=== PATIENT | male | born 1975 | race Caucasian/White ===

== ENCOUNTER 2022-02-13 19:49 | Emergency (ER) | payer OTHER, SELFPAY ==
--- NOTE | 2022-02-13 20:06 | ED.URI ---
HPI - URI/Sore Throat General Chief Complaint: Upper Respiratory Infection Stated Complaint: cough Time Seen by Provider: 02/13/22 20:06 Source: patient Mode of arrival: ambulatory Limitations: no limitations History of Present Illness HPI Narrative: 46-year-old male with no significant medical history presents with complaint of dry hacking cough for 3 weeks. States that he coughs when he is exerting himself laying flat in bed . No changes to cough today. States just not getting better . Denies shortness of breath. No fever or chills. No nasal congestion, postnasal drainage, runny nose, sinus pressure. No nausea vomiting diarrhea. Is taking an mnhl-zbh-fkronvx cough medication from [employer]. Does not know name of medication. States he gets this every year from allergies although he is not taking any daily allergy medication. Has been told that it is bronchitis and he gets an antibiotic for it. Patient is speaking in full sentences. No respiratory distress. He is well-appearing. All systems reviewed and negative except as noted above. Related Data Allergies Allergy/AdvReac Type Severity Reaction Status Date / Time milk Allergy Unknown Verified 03/27/17 10:17 ENVIRONMENTAL ALLERGENS AdvReac Unknown Uncoded 03/27/17 10:17 Review of Systems Review of Systems: CONSTITUTIONAL: Denies fever, chills, or sweats. EYES: Denies visual changes, redness, or discharge. ENT: Denies rhinorrhea, congestion, sore throat, or otalgia. CARDIOVASCULAR: Denies chest pain, palpitations, or edema. RESPIRATORY: Reports cough. Denies dyspnea. GASTROINTESTINAL: Denies abdominal pain, nausea, vomiting, or diarrhea. GENITOURINARY: Denies dysuria or hematuria. SKIN: Denies rash or itching. MUSCULOSKELETAL: Denies back pain, joint pain, or myalgia. NEUROLOGIC: Denies headache, numbness, or weakness. PSYCHIATRIC: Denies anxiety or depression. All other systems reviewed are negative, except as documented in HPI. PMFSH Comments At time of signature, agree with nursing past medical, surgical, social and family history. There is no relevant family history pertinent to the presenting complaint. Exam Narrative: GENERAL: This is a well-nourished, well-developed patient, in no apparent distress. HEAD: normocephalic, atraumatic. EYES: PERRL. Sclera clear/white. Vision is grossly intact. EARS: External ears normal, auditory canals clear and without drainage, TMs normal without perforation. Hearing grossly intact. NOSE: External nose normal with no obvious nasal discharge, nares without redness, no rhinorrhea. THROAT: Mucous membranes moist, posterior pharynx clear. NECK: Neck supple, non-tender without lymphadenopathy, masses or thyromegaly. CARDIOVASCULAR: Regular rate and rhythm without murmurs, gallops, or rubs. RESPIRATORY: Clear to auscultation. Breath sounds equal bilaterally. No wheezes, rales, or rhonchi. SKIN: warm, Dry, intact with no suspicious lesions or rash, good texture and turgor. NEURO: awake, alert, and oriented to person, place and time. There were no obvious focal neurologic abnormalities. EXTREMITIES: Normal range of motion to all extremities. Course Course Level of Care: Express Care Visit Vital Signs Vital signs: Reviewed MDM - URI/Sore Throat MDM Narrative Medical decision making narrative: Patient is well-appearing. Exam normal. Lung sounds clear to auscultation throughout all lung triplett. No cough was noted during exam. Patient is aware of diagnosis, understands and agrees to treatment plan. Anticipatory guidance given. Patient agrees to follow-up as directed and is aware of reasons to seek care at the emergency department. Portions of this record may have been created with voice recognition software Differential Diagnosis Differential diagnosis: Likely upper respiratory infection, viral infection and bronchitis Discharge Plan Discharge Clinical Impression: Cough Patient Disposition: Home, Self-
== END 2022-02-13 20:15 | disposition home or self-care (01) ==
PROVIDERS: Emergency Provider Nurse Practitioner Family
DX: R05.9 Cough, unspecified (principal)
CPT/HCPCS: 99213; G0463

== ENCOUNTER 2022-10-26 14:37 | Emergency (ER) | payer OTHER, SELFPAY ==
--- NOTE | ~2022-10-26 | XR_ITS ---
EXAMINATION: XR knee LT min 4V DATE: 10/26/2022 15:11 INDICATION: Left knee pain TECHNIQUE: Four views of the left knee were obtained. COMPARISON: None. FINDINGS: Alignment is normal. No fracture or osteochondral lesion. There is mild tricompartmental os teoarthritis characterized by tiny marginal osteophytes. No joint effusion/synovitis. Calcified athe rosclerosis is noted. IMPRESSION: 1. No acute osseous abnormality. Reviewed, dictated and finalized at location B. OR QUALITY CONTROL INSPECTOR
[2022-10-26 14:43] VITALS: BP 106/81; PULSE 68; RESP 16; TEMP 36.6; O2SAT 99
--- NOTE | 2022-10-26 14:43 | ED.GENADULT ---
HPI - General Adult General Chief complaint: Extremity Problem,Nontraumatic Stated complaint: Left Knee Pain Time Seen by Provider: 10/26/22 14:47 Source: patient, RN notes reviewed and old records reviewed Mode of arrival: ambulatory Limitations: no limitations History of Present Illness HPI narrative: 47-year-old male presents to the [facility] with complaints of left knee pain. Patient states that the pain started when he woke up yesterday. Denies any injury. no bruising or swelling noted. Patient is also concerned because his allergies are acting Up. States that all the jynv-[id number] medications make him drowsy. Wants know if there is any that he can take that will not make him drowsy. Denies any fevers, chest pain, shortness of breath. Reports that his sinuses are sometimes stuffy and sometimes has a runny nose but no other symptoms Onset (ago): day(s) (1) Related Data Allergies Allergy/AdvReac Type Severity Reaction Status Date / Time milk Allergy Unknown Unknown Verified 10/26/22 14:52 ENVIRONMENTAL ALLERGENS AdvReac Unknown Unknown Uncoded 10/26/22 14:52 Review of Systems Review of Systems: All systems reviewed & are unremarkable except as noted in HPI and below Constitutional: Constitutional: Reports no additional constitutional complaints Eyes: Eyes: Reports no additional eye complaints ENT: Reports as per HPI and Reports nasal congestion Cardiovascular: Cardiovascular: Reports no additional cardiovascular complaints, Denies chest pain and Denies dyspnea Respiratory: Respiratory: Reports no additional respiratory complaints, Denies chest congestion, Denies cough and Denies dyspnea Gastrointestinal: Gastrointestinal: Reports no additional gastrointestinal complaints, Denies abdominal pain, Denies nausea and Denies vomiting Musculoskeletal: Musculoskeletal: Reports as per HPI and Reports arthralgias ( left knee) Integumentary/Breasts: Skin/Breast: Reports system reviewed and no additional complaints, except as docu Neurologic: Reports system reviewed and no additional complaints, except as documented Psychiatric: Psychiatric: Reports no additional psychiatric complaints Allergic/Immunologic: Allergic/Immunologic: Reports no additional allergic/immunologic complaints PMFSH Comments At the time of my signature, I reviewed and agree with the nursing past medical, surgical, social, and family history. There is no relevant family history pertinent to the patient complaint. Exam Const: General: cooperative, healthy appearing, comfortable, no acute distress, well developed, alert and well nourished Nutritional Appearance: well nourished Orientation/consciousness: patient oriented x3 Limitations: no limitations HENMT: Head: normal to inspection Ears: hearing grossly normal bilaterally and external ears normal Face/Nose/Sinus: Normal external nose present, Normal nares present, Normal nasal mucous membranes and turbinates present and normal facial exam Face and sinus: normal facial exam Mouth: Yes Normal oral and palatal mucosa present, Yes lip normal and Yes moist mucous membranes Throat: posterior oropharynx normal and uvula midline Eyes: General: appearance normal, both eyes and all related structures Alignment and Position: alignment normal Periorbital: periorbital findings normal Conjunctivae: conjunctivae normal Pupils: Equal, round and reactive pupils present EOM: EOMs intact bilaterally Neck: Neck: normal visual inspection, full ROM, no lymphadenopathy and no meningeal signs Chest: Chest palpation & inspection: normal inspection of the chest Resp: Effort & Inspection: normal respiratory effort and able to speak in complete sentences Auscultation: clear to auscultation bilaterally, no crackles, no rales, no rhonchi and no wheezes Cardio: Rate: regular rate Rhythm: regular rhythm Back/Spine/Pelvis: Cervical Spine: cervical ROM normal Thoracic/Lumbar Spine: No thoracic spinal tenderness S
== END 2022-10-26 15:46 | disposition home or self-care (01) ==
PROVIDERS: Emergency Provider Nurse Practitioner
DX: M17.12 Unilateral primary osteoarthritis, left knee (principal)
CPT/HCPCS: 73564; 99213; G0463

== ENCOUNTER 2023-06-05 14:22 | Emergency (ER) | payer OTHER, SELFPAY ==
[2023-06-05 14:47] VITALS: BP 149/80; PULSE 104; RESP 20; TEMP 37.1; O2SAT 100
--- NOTE | 2023-06-05 14:58 | ED.URI ---
HPI - URI/Sore Throat General Chief Complaint: Upper Respiratory Infection Stated Complaint: Sinus Source: patient and RN notes reviewed History of Present Illness HPI Narrative: 47-year-old male presents to urgent care with complaints of congestion, and cough for the last 8 days. 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 Patient states he immediately began to have a runny nose and sneezing after the delivery so he attempted taking allergy medicine without relief. Patient states my congestion got down into his chest it was causing her to cough a lot so he began taking an OTC congestion/cough pill with moderate relief. Pt states his congestion in his face continues though. reports some shortness of breath with exertion. Reports some chest pain when he coughs. Denies any fevers, chills, chest pain, vomiting, diarrhea. Related Data Allergies Allergy/AdvReac Type Severity Reaction Status Date / Time milk Allergy Unknown Unknown Verified 06/05/23 14:40 ENVIRONMENTAL ALLERGENS AdvReac Unknown Unknown Uncoded 06/05/23 14:40 Review of Systems Review of Systems: Pertinent positives and pertinent negatives per HPI. PMFSH Past Medical History Medical History No significant past medical history Surgical History Surgical History (Updated 02/23/23 @ 04:42 by Anton Romo MD) No significant past surgical history Social History Social History (Updated 02/23/23 @ 04:42 by Anton Romo MD) Smoking status: Never smoker Alcohol intake: never Substance use: never Comments At the time of my signature, I reviewed and agree with the nursing past medical, surgical, social, and family history. There is no relevant family history pertinent to the patient complaint. Exam Narrative: GENERAL: This is a well-nourished, well-developed patient, in no apparent distress. HEAD: normocephalic, atraumatic. EYES: Sclera clear/white. Vision is grossly intact. EARS: External ears normal, auditory canals clear and without drainage, TMs normal without perforation. Hearing grossly intact. NOSE: congested THROAT: Mucous membranes moist, posterior pharynx clear. NECK: Neck supple, non-tender without lymphadenopathy, masses or thyromegaly. CARDIOVASCULAR: Regular rate and rhythm without murmurs, gallops, or rubs. RESPIRATORY: Clear to auscultation. Breath sounds equal bilaterally. No wheezes, rales, or rhonchi. GASTROINTESTINAL: Abdomen soft, non-tender, nondistended. Bowel sounds are active. No hepato-splenomegaly, or palpable masses. No guarding. SKIN: warm, intact with no suspicious lesions or rash, good texture and turgor. NEURO: awake, alert, and oriented to person, place and time. There were no obvious focal neurologic abnormalities. Course Course Level of Care: Express Care Visit Vital Signs Vital signs: Vital Signs Temperature 98.8 F 06/05/23 14:47 Pulse Rate 104 H 06/05/23 14:47 Respiratory Rate 20 06/05/23 14:47 Blood Pressure 149/80 H 06/05/23 14:47 Pulse Oximetry 100 06/05/23 14:47 Oxygen Delivery Room Air 06/05/23 14:47 Temperature 98.8 F 06/05/23 14:47 Pulse Rate 104 H 06/05/23 14:47 Respiratory Rate 20 06/05/23 14:47 Blood Pressure 149/80 H 06/05/23 14:47 Pulse Oximetry 100 06/05/23 14:47 Oxygen Delivery Room Air 06/05/23 14:47 reviewed MDM - URI/Sore Throat MDM Narrative Medical decision making narrative: Go to the ER for any new or worsening symptoms. Avoid smoking/second-hand smoke. Continue to take Tylenol or Motrin for pain. Increase your Vitamin C intake. Use a humidifier or vaporizer at night. Take Medications as prescribed. Drink plenty of water. 8-10 glasses per day. Use flonase 2 times per day for 5 days then as needed Take mucinex 2 times per day and be sure to take with 8oz of water. Follow up with Primary provider
== END 2023-06-05 15:05 | disposition home or self-care (01) ==
PROVIDERS: Emergency Provider Nurse Practitioner Family
DX: J01.90 Acute sinusitis, unspecified (principal)
CPT/HCPCS: 99213; G0463

== ENCOUNTER 2023-06-14 15:27 | Emergency (ER) | payer OTHER, SELFPAY ==
[2023-06-14 15:41] VITALS: BP 133/71; PULSE 66; RESP 16; TEMP 36.8; O2SAT 98
--- NOTE | 2023-06-14 15:59 | ED.URI ---
HPI - URI/Sore Throat General Chief Complaint: Upper Respiratory Infection Stated Complaint: sinus drainage Time Seen by Provider: 06/14/23 15:59 Source: patient Mode of arrival: ambulatory Limitations: no limitations History of Present Illness HPI Narrative: 47 yo M presents requesting antibiotic refill. Will take last dose of augmentin tonight and still has PND. States i am 90 percent better . Using flonase but no daily claritin or zyrtec. Afebrile. Pt well appearing and talkative. All systems reviewed and negative except as noted above. Related Data Home Medications Medication Instructions Recorded Confirmed No Home Medications 06/14/23 06/14/23 Allergies Allergy/AdvReac Type Severity Reaction Status Date / Time milk Allergy Unknown Unknown Verified 06/14/23 15:45 ENVIRONMENTAL ALLERGENS AdvReac Unknown Unknown Uncoded 06/14/23 15:45 Review of Systems Review of Systems: CONSTITUTIONAL: Denies fever, chills, or sweats. EYES: Denies visual changes, redness, or discharge. ENT: Denies rhinorrhea, congestion, sore throat, or otalgia. Reports postnasal drainage. CARDIOVASCULAR: Denies chest pain, palpitations, or edema. RESPIRATORY: Denies cough or dyspnea. GASTROINTESTINAL: Denies abdominal pain, nausea, vomiting, or diarrhea. GENITOURINARY: Denies dysuria or hematuria. SKIN: Denies rash or itching. MUSCULOSKELETAL: Denies back pain, joint pain, or myalgia. NEUROLOGIC: Denies headache, numbness, or weakness. PSYCHIATRIC: Denies anxiety or depression. All other systems reviewed are negative, except as documented in HPI. PMFSH Past Medical History Medical History No significant past medical history Surgical History Surgical History (Updated 02/23/23 @ 04:42 by Anton Romo MD) No significant past surgical history Social History Social History (Updated 02/23/23 @ 04:42 by Anton Romo MD) Smoking status: Never smoker Alcohol intake: never Substance use: never Comments At time of signature, agree with nursing past medical, surgical, social and family history. There is no relevant family history pertinent to the presenting complaint. Exam Narrative: GENERAL: This is a well-nourished, well-developed patient, in no apparent distress. HEAD: normocephalic, atraumatic. EYES: PERRL. Sclera clear/white. Vision is grossly intact. EARS: External ears normal, auditory canals clear and without drainage, TMs normal without perforation. Hearing grossly intact. NOSE: External nose normal with no obvious nasal discharge, nares without redness, no rhinorrhea. THROAT: Mucous membranes moist, Unable to evaluate pharynx due to large tongue. Patient gagging with tug weight. Clearing throat of drainage. NECK: Neck supple, non-tender without lymphadenopathy, masses or thyromegaly. CARDIOVASCULAR: Regular rate and rhythm without murmurs, gallops, or rubs. RESPIRATORY: Clear to auscultation. Breath sounds equal bilaterally. No wheezes, rales, or rhonchi. SKIN: warm, Dry, intact with no suspicious lesions or rash, good texture and turgor. NEURO: awake, alert, and oriented to person, place and time. There were no obvious focal neurologic abnormalities. EXTREMITIES: No joint tenderness, effusion, or edema noted. Course Course Level of Care: Express Care Visit Vital Signs Vital signs: Vital Signs Temperature 36.8 C 06/14/23 15:41 Pulse Rate 66 06/14/23 15:41 Respiratory Rate 16 06/14/23 15:41 Blood Pressure 133/71 06/14/23 15:41 Pulse Oximetry 98 06/14/23 15:41 Oxygen Delivery Room Air 06/14/23 15:41 Temperature 36.8 C 06/14/23 15:41 Pulse Rate 66 06/14/23 15:41 Respiratory Rate 16 06/14/23 15:41 Blood Pressure 133/71 06/14/23 15:41 Pulse Oximetry 98 06/14/23 15:41 Oxygen Delivery Room Air 06/14/23 15:41 Reviewed MDM - URI/Sore Throat MDM Narrative Medical decision making na
== END 2023-06-14 16:06 | disposition home or self-care (01) ==
PROVIDERS: Emergency Provider Nurse Practitioner Family
DX: R09.82 Postnasal drip (principal)
CPT/HCPCS: 99213; G0463

== ENCOUNTER 2023-08-24 14:35 | Emergency (ER) | payer OTHER, SELFPAY ==
[2023-08-24 14:41] VITALS: BP 123/76; PULSE 66; RESP 16; TEMP 36.3; O2SAT 99
--- NOTE | 2023-08-24 14:43 | ED.URI ---
HPI - URI/Sore Throat General Chief Complaint: Upper Respiratory Infection Stated Complaint: Sore Throat/Back Pain Time Seen by Provider: 08/24/23 15:00 Source: patient and RN notes reviewed Mode of arrival: ambulatory Limitations: no limitations History of Present Illness HPI Narrative: 47-year-old male presents with concern for for complaints. He reports he has had low back ache for 1 week. Reports history of pulling muscle in his back. He denies any new injury, trauma. Reports he has been playing a lot with his grand children. Reports he can find positions of comfort, it is uncomfortable to stand up from sitting mainly. Reports sitting for long periods of time is also uncomfortable. He denies weakness in extremity, loss of bowel or bladder function, perianal anesthesia, abdominal pain. In the 2nd complaint he reports sore throat that started on Wednesday. Reports a tickle and cough. He denies fever, aches chills, sweats. Reports some nasal congestion MD elicited complaint: sore throat and other (Back pain) Related Data Allergies Allergy/AdvReac Type Severity Reaction Status Date / Time milk Allergy Unknown Gastrointestinal Verified 08/24/23 15:14 Upset ENVIRONMENTAL ALLERGENS AdvReac Unknown Unknown Uncoded 06/14/23 15:45 Review of Systems Review of Systems: CONSTITUTIONAL: Denies malaise, chills, sweats, or fever. EYES: Denies visual changes, redness, or discharge. ENT: Reports rhinorrhea, congestion, sore throat. Denies sinus pain, otalgia CARDIOVASCULAR: Denies chest pain, palpitations, or edema. RESPIRATORY: Denies cough or dyspnea. GASTROINTESTINAL: Denies abdominal pain, nausea, vomiting, diarrhea, bloody, or mucous stools. Denies loss of bowel function GENITOURINARY: Denies dysuria or hematuria. Denies loss of bladder function, perianal anesthesia SKIN: Denies rash or itching. MUSCULOSKELETAL: Reports left low back pain. Denies myalgia. NEUROLOGIC: Denies numbness, weakness, or headache. All systems reviewed & are unremarkable except as noted in HPI and below PMFSH Past Medical History Medical History No significant past medical history Surgical History Surgical History (Updated 02/23/23 @ 04:42 by Anton Romo MD) No significant past surgical history Social History Social History (Updated 02/23/23 @ 04:42 by Anton Romo MD) Smoking status: Never smoker Alcohol intake: never Substance use: never Comments At time of signature, agree with nursing past medical, surgical, social and family history. There is no relevant family history pertinent to the presenting complaint Exam Narrative: GENERAL: Well-appearing, well-nourished, and in no acute distress. HEAD: Normocephalic, atraumatic. EYES: PERRLA and EOMI. HEENT: Clear discharge, TM pearly cook with sharp light reflex bilaterally, mild oropharynx erythema without enlarged tonsils. NECK: Supple. No lymphadenopathy. CHEST: Clear to auscultation. No respiratory distress. HEART: Regular rate and rhythm. Distal pulses palpable and equal, cap refill <3 seconds ABDOMEN: Soft, nontender, nondistended, normal active bowel sounds, no palpable or pulsatile masses. MUSCULOSKELETAL: Normal range of motion and strength in all extremities. Normal sensation in dermatomal distributions with sensitivity to light touch and pain. No midline back tenderness to palpation. No paraspinal tenderness. Transfers from lying to sitting to standing. SKIN: Warm, dry, no rash. No ecchymosis, erythema, open wounds to back. NEURO: No focal deficits. Alert and oriented x3. Reflexes intact. Normal gait. PSYCH: Normal mood and affect Course Course Emergency Course: Patient is aware of diagnosis, understands and agrees to treatment plan. Anticipatory guidance given. Patient agrees to follow-up as directed and is aware of reasons to seek care at the emergency department. Portions of this
== END 2023-08-24 15:21 | disposition home or self-care (01) ==
PROVIDERS: Emergency Provider Nurse Practitioner
DX: J06.9 Acute upper respiratory infection, unspecified (principal); M54.50 Low back pain, unspecified
CPT/HCPCS: 87081; 87880; 99213; G0463

== ENCOUNTER 2023-11-01 16:28 | Emergency (ER) | payer OTHER, SELFPAY ==
--- NOTE | ~2023-11-01 | XR_ITS ---
EXAMINATION: XR chest 2V DATE: 11/01/2023 17:22 INDICATION: Cough. TECHNIQUE: Frontal and lateral views of the chest were obtained. COMPARISON: Thoracic spine CT 02/23/23 FINDINGS: There is no pneumonia, pleural effusion, or pneumothorax. The heart size is normal. IMPRESSION: 1. No acute cardiopulmonary disease. Reviewed, dictated and finalized at location A. ENERGY CONSULTANT SUPERVISOR
[2023-11-01 16:44] VITALS: BP 135/74; PULSE 94; RESP 16; TEMP 37.2; O2SAT 100
--- NOTE | 2023-11-01 17:24 | ED.URI ---
HPI - URI/Sore Throat General Chief Complaint: Upper Respiratory Infection Stated Complaint: Cough Time Seen by Provider: 11/01/23 17:46 Source: patient and RN notes reviewed Mode of arrival: ambulatory Limitations: no limitations History of Present Illness HPI Narrative: 48-year-old male presents with concern for 2 week history of sinus congestion and drainage, cough, chest congestion. Reports [id number] medications are not helping. Reports shortness of breath with coughing fits. He reports general malaise denies fever MD elicited complaint: cough and nasal congestion Related Data Allergies Allergy/AdvReac Type Severity Reaction Status Date / Time milk Allergy Unknown Gastrointestinal Verified 11/01/23 16:54 Upset ENVIRONMENTAL ALLERGENS AdvReac Unknown Unknown Uncoded 06/14/23 15:45 Review of Systems Review of Systems: CONSTITUTIONAL: Reports malaise EYES: Denies visual changes, redness, or discharge. ENT: Reports rhinorrhea, congestion, sinus pain CARDIOVASCULAR: Denies chest pain, palpitations, or edema. RESPIRATORY: Reports cough, situational dyspnea. GASTROINTESTINAL: Denies abdominal pain, nausea, vomiting, diarrhea SKIN: Denies rash or itching. MUSCULOSKELETAL: Denies myalgia. NEUROLOGIC: Denies headache. All systems reviewed & are unremarkable except as noted in HPI and below PMFSH Past Medical History Medical History No significant past medical history Surgical History Surgical History (Updated 02/23/23 @ 04:42 by Anton Romo MD) No significant past surgical history Social History Social History (Updated 02/23/23 @ 04:42 by Anton Romo MD) Smoking status: Never smoker Alcohol intake: never Substance use: never Comments At time of signature, agree with nursing past medical, surgical, social and family history. There is no relevant family history pertinent to the presenting complaint Exam Narrative: GENERAL: Nontoxic-appearing, well-nourished, and in no acute distress. HEAD: Normocephalic EYES: PERRLA, conjunctivae clear ENT: Nares clear, turbinates edematous and erythematous. Mucous membranes moist. TM pearly cook with dull light reflex bilaterally; no tragal tenderness. Oropharynx not erythematous without lesions. Tonsils not enlarged and without exudate, no drooling, no hoarseness, no trismus, uvula midline. NECK: Supple. No lymphadenopathy CHEST: Clear to auscultation, breath sounds equal. No wheezing, rhonchi, rales, or stridor. No respiratory distress, speaks in full sentences. Cough noted HEART: Regular rate and rhythm. No murmur heard. SKIN: Warm, dry, no rash. NEURO: Alert and oriented x3. PSYCH: Normal mood and affect Course Course Emergency Course: Patient is aware of diagnosis, understands and agrees to treatment plan. Anticipatory guidance given. Patient agrees to follow-up as directed and is aware of reasons to seek care at the emergency department. Portions of this record may have been created with voice recognition software Level of Care: Express Care Visit Vital Signs Vital signs: Vital Signs Temperature 98.9 F 11/01/23 16:44 Pulse Rate 94 11/01/23 16:44 Respiratory Rate 16 11/01/23 16:44 Blood Pressure 135/74 11/01/23 16:44 Pulse Oximetry 100 11/01/23 16:44 Oxygen Delivery Room Air 11/01/23 16:44 Temperature 98.9 F 11/01/23 16:44 Pulse Rate 94 11/01/23 16:44 Respiratory Rate 16 11/01/23 16:44 Blood Pressure 135/74 11/01/23 16:44 Pulse Oximetry 100 11/01/23 16:44 Oxygen Delivery Room Air 11/01/23 16:44 Reviewed. MDM - URI/Sore Throat MDM Narrative Medical decision making narrative: Differential diagnosis considered: Benz virus, strep pharyngitis, allergic rhinitis, upper respiratory tract infection, sinusitis, rhinosinusitis, nasopharyngitis. viral pharyngitis, otitis media, otitis externa, pneumonia, bronchitis, viral
== END 2023-11-01 17:55 | disposition home or self-care (01) ==
PROVIDERS: Emergency Provider Nurse Practitioner
DX: J40 Bronchitis, not specified as acute or chronic (principal)
CPT/HCPCS: 71046; 99213; G0463

== ENCOUNTER 2024-05-30 19:15 | Emergency (ER) | payer OTHER, SELFPAY ==
--- NOTE | 2024-05-30 19:16 | ED.NAVMDI ---
HPI - Nausea/Vomiting/Diarrhea General Chief complaint: Nausea/Vomiting/Diarrhea Stated complaint: Food Poisoning Time Seen by Provider: 05/30/24 19:16 Source: patient Mode of arrival: ambulatory Limitations: no limitations History of Present Illness HPI Narrative: Patient is a 48 y/o Male that presents with nausea and diarrhea since Wednesday after eating at a restaurant with . Patient was having diarrhea every 15-30 minutes until last night when it stopped. Reports one episode today. Denies any nausea or vomiting. Still has some abdominal cramping. Did eat today. Reports fatigue and continued decreased appetite. Denies any fever or chills. Denies any blood in stool. Related Data Allergies Allergy/AdvReac Type Severity Reaction Status Date / Time milk Allergy Unknown Gastrointestinal Verified 05/30/24 19:16 Upset ENVIRONMENTAL ALLERGENS AdvReac Unknown Unknown Uncoded 05/30/24 19:16 Review of Systems Review of Systems: All systems reviewed & are unremarkable except as noted in HPI and below Constitutional: Constitutional: Denies body ache(s), Denies chills, Denies fatigue, Denies fever(s), Denies headache(s), Denies malaise and Denies weakness Eyes: Eyes: Denies blurry vision, Denies irritation and Denies loss of vision ENT: Denies otalgia, Denies headache(s), Denies nasal discharge, Denies sinus pain and Denies sore throat Cardiovascular: Cardiovascular: Denies chest pain, Denies irregular heart rhythm and Denies dyspnea Respiratory: Respiratory: Denies dyspnea Gastrointestinal: Gastrointestinal: Denies abdominal pain, Denies melena, Denies hematochezia, Reports GI cramping, Reports diarrhea, Reports nausea and Denies vomiting Musculoskeletal: Musculoskeletal: Denies back pain, Denies myalgias and Denies arthralgias Integumentary/Breasts: Skin/Breast: Denies pruritus and Denies rash Neurologic: Denies headache(s), Denies loss of vision and Denies weakness Psychiatric: Psychiatric: Reports no additional psychiatric complaints Endocrine: Endocrine: Denies fatigue PMFSH Past Medical History Medical History No significant past medical history Surgical History Surgical History No significant past surgical history Social History Social History Smoking status: Never smoker Alcohol intake: never Substance use: never Comments At time of signature, agree with nursing past medical, surgical, social and family history. There is no relevant family history pertinent to the presenting complaint. Exam Const: General: cooperative, healthy appearing, comfortable, no acute distress and well nourished Nutritional Appearance: well nourished Orientation/consciousness: patient oriented x3 Limitations: no limitations HENMT: Head: normal to inspection, normocephalic and atraumatic Ears: hearing grossly normal bilaterally and external ears normal Face/Nose/Sinus: Normal external nose present, normal facial exam and face symmetric Face and sinus: normal facial exam and face symmetric Mouth: Yes lip normal Eyes: General: appearance normal, both eyes and all related structures Alignment and Position: alignment normal and position normal Periorbital: periorbital findings normal Eyelids: eyelids normal Pupils: Equal, round and reactive pupils present EOM: EOMs intact bilaterally Neck: Neck: normal visual inspection, full ROM and supple Chest: Chest palpation & inspection: normal inspection of the chest Resp: Effort & Inspection: normal respiratory effort and able to speak in complete sentences Auscultation: clear to auscultation bilaterally Cardio: Rate: regular rate Rhythm: regular rhythm Heart sounds: S1 normal heart sound present and S2 normal heart sound present GI: Inspection: normal to inspection GI Palp: No abdominal tenderness, Yes Soft
[2024-05-30 19:23] VITALS: BP 113/79; PULSE 81; RESP 16; TEMP 37; O2SAT 100
== END 2024-05-30 19:58 | disposition home or self-care (01) ==
PROVIDERS: Emergency Provider Nurse Practitioner Family
DX: K52.9 Noninfective gastroenteritis and colitis, unspecified (principal)
CPT/HCPCS: 99213; G0463

== ENCOUNTER 2025-05-10 19:30 | Emergency (ER) | payer OTHER, SELFPAY ==
--- NOTE | ~2025-05-10 | XR_ITS ---
XR foot RT min 3V 05/10/2025 19:49 Indication: Right lateral foot pain Procedure: 4 views right foot Comparison: No prior studies for comparison. Findings: Lisfranc joint intact. There is an accessory ossicle proximal to the fifth metatarsal. No acute fracture or traumatic malalignment. No foreign bodies. Mild diffuse soft tissue swelling/edema. Impression: 1: No acute bone or joint abnormality. Reviewed, dictated and finalized at location O. Impression: 1: No acute bone or joint abnormality.
[2025-05-10 19:39] VITALS: BP 138/81; PULSE 76; RESP 18; TEMP 36.8; O2SAT 98
--- NOTE | 2025-05-10 19:48 | ED.LOWEXIN ---
HPI - Extremity Injury (Lower) General Chief Complaint: Extremity Injury, Lower Stated Complaint: Right Foot Pain Time Seen by Provider: 05/10/25 19:40 Source: patient and RN notes reviewed Mode of arrival: ambulatory Limitations: no limitations History of Present Illness HPI Narrative: 49-year-old male Presents [facility] complaining of injury to right foot. 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 Since then the patient is having hard time bearing weight on his right foot. Patient denies dropping anything or falling on his foot. Patient to the injury occurred approximately 1 hour ago. Patient says the pain is primarily on the lateral midfoot and feels pain the plantar surface of his distal foot. Patient denies any numbness, tingling or any other injuries. Patient denies any significant past medical history. Related Data Home Medications ?Medication ?Instructions ?Recorded ?Confirmed ?Last Taken ?Type No Home Medications 05/10/25 05/10/25 Unknown History Allergies Allergy/AdvReac Type Severity Reaction Status Date / Time milk Allergy Unknown Gastrointestinal Verified 05/10/25 19:31 Upset ENVIRONMENTAL ALLERGENS AdvReac Unknown Unknown Uncoded 05/10/25 19:31 Review of Systems Review of Systems: CONSTITUTIONAL: Denies fever, chills, or sweats. EYES: Denies visual changes, redness, or discharge. ENT: Denies rhinorrhea, congestion, sore throat, or otalgia. CARDIOVASCULAR: Denies chest pain, palpitations, or edema. RESPIRATORY: Denies cough or dyspnea. GASTROINTESTINAL: Denies abdominal pain, nausea, vomiting, or diarrhea. GENITOURINARY: Denies dysuria or hematuria. SKIN: Denies rash, wound, or itching. MUSCULOSKELETAL: Denies back pain, joint pain, or myalgia. Positive for right foot injury and swelling NEUROLOGIC: Denies headache, numbness, or weakness. PSYCHIATRIC: Denies anxiety or depression. All other systems reviewed are negative, except as documented in HPI. [facility] Past Medical History Medical History No significant past medical history Surgical History Surgical History No significant past surgical history Social History Social History Smoking status: Never smoker Alcohol intake: never Substance use: never Comments At the time of my signature, I reviewed and agree with the nursing past medical, surgical, social, and family history. There is no relevant family history pertinent to the patient complaint. Exam Narrative: GENERAL: This is a well-nourished, well-developed adult, in no apparent distress. They are non ill-appearing, nontoxic appearing. HEAD: normocephalic, atraumatic. EYES: Sclera clear/white. Vision is grossly intact. Conjunctiva normal. Extraocular movement intact. EARS: External ears normal Hearing grossly intact. NOSE: External nose normal THROAT: Mucous membranes moist NECK: Neck supple CARDIOVASCULAR: Regular rate and rhythm RESPIRATORY: Respiratory rate normal, respiratory effort nonlabored, no respiratory distress NEURO: awake, alert, and oriented to person, place and time. There were no obvious focal neurologic abnormalities. EXTREMITIES: Right foot: No obvious deformity, injury, bruising, redness. Right foot is edematous. Ankle Nontender through full range of motion. Tenderness to palpation to mid lateral foot and the distal plantar surface of the forefoot. Capillary refill less than 3 seconds. Right pedal Pulse 2 +palpable. Normal sensation. Neurovascular status intact distal injury. Patient able to wiggle his toes BACK: Nontender without deformity. Course Course Emergency Course: Portions of this record may have been created with voice recognition software Level of Care: Express Care Visit Vital Signs Vital signs: Vital Signs Temperature 98.2 F 05/10/25 19:39 Pulse Rate 76 05/10/25 19:39 Respiratory Rate 18 05/10/25 19:39 Blood Pressure 138/81 05/10/25 19:39 Pulse Oximetry 98 05/10/25 19:39 Oxygen Delivery Room Air 05/10/25 19:39 Temperature 98.2 F 05/10/25 19:39 Pulse Rate 76 05/10/25 19:39 Respiratory Rate 18 05/10/25 19:39 Blood Pressure 138/81 05/10/25 19:39 Pulse Oximetry 98 05/10/25 19:39 Oxygen Delivery Room Air 05/10/25 19:39 Reviewed MDM - Extremity Injury (Lower) MDM Narrative Medical decision making narrative: X-ray right foot negative for any fractures or acute findings. Patient likely has a foot sprain. Patient given Juan wrap and crutches. Patient who is told to bear weight as tolerated. Discussed physical exam findings. Advised supportive measures and signs/symptoms to go to the ER. Pt is appropriate for outpt treatment and f/u. Differential Diagnosis Differential diagnosis: Likely other (Foot sprain, ligament injury, foot fracture) Imaging Data Radiologist's impression: ITS Impressions Foot X-Ray 05/10/25 19:53 Impression: 1: No acute bone or joint abnormality. Critical Care Time Critical Care Time Critical Care Time: No Discharge Plan Discharge Clinical Impression: Injury of foot, right Qualifiers: Encounter type: initial encounter Qualified Code(s): S99.921A - Unspecified injury of right foot, initial encounter Patient Disposition: Home Condition: Stable Instructions: Foot Sprain (ED) Additional Instructions: The x-ray right foot is negative for any fractures or acute findings.. Rest and elevate the foot; bear weight as tolerated. Use the crutches as needed. Apply ice 15-20 minute intervals several times a day Keep it wrapped with JUAN. You may take ibuprofen 600 mg to 800 mg every 6-8 hours. Do not exceed more than 800 mg of ibuprofen per dose. Do not exceed more than 3200 mg ibuprofen in a day. You may take up to 1000 mg Tylenol every 6-8 hours. Do not exceed 1000 mg per dose, do exceed more than 4000 mg of Tylenol in a day. Follow up with your primary care provider, orthopedist, or assessment nurse needed in 1-2 weeks especially pain persists. Patient Language: [place] Prescriptions: No Action No Home Medications Follow-up/Referrals: Girma Marshall DPM [Physician, Podiatry] Jerzy Arriola MD [Physician, Orthopedics] PHYSICIAN,SURGICAL ORDERLY [Primary Care Provider, Internal Medicine] Time of Disposition: 20:04
[2025-05-10] MEDS: IBUPROFEN 400 MG TABLET 800 MG PO (20:14)
== END 2025-05-10 20:10 | disposition home or self-care (01) ==
DX: S99.921A Unspecified injury of right foot, initial encounter (principal); X58.XXXA Exposure to other specified factors, initial encounter
CPT/HCPCS: 73630; 99213; A9270; G0463